=== PATIENT | male | born 1960 | race African-American/Black ===

== ENCOUNTER 2018-03-15 20:05 | Emergency (ER) | payer SELFPAY ==
[2018-03-15] MEDS: NICARDipine HCL 30 MG CAPSULE PO (20:50)
[2018-03-15 21:20] LABS: TROPONIN-I < 0.012 ng/ml (0.000-0.120)
== END 2018-03-15 21:59 | disposition home or self-care (01) ==
LOC: E/R 20:05
DX: R07.9 Chest pain, unspecified (principal); I10 Essential (primary) hypertension; M62.512 Muscle wasting and atrophy, not elsewhere classified, left shoulder; Z79.82 Long term (current) use of aspirin
CPT/HCPCS: 36415; 71045; 84484; 93005; 99285-25

== ENCOUNTER 2018-07-12 08:50 | Emergency (ER) | payer OTHER ==
[2018-07-12] MEDS: KETOROLAC 60 MG INJ IM (09:50)
== END 2018-07-12 09:55 | disposition home or self-care (01) ==
LOC: FTE 08:50
DX: M54.6 Pain in thoracic spine (principal); I10 Essential (primary) hypertension; Z79.82 Long term (current) use of aspirin
CPT/HCPCS: 96372; 99284-25

== ENCOUNTER 2018-07-20 14:30 | Emergency (ER) | payer OTHER ==
[2018-07-20] MEDS: KETOROLAC 30 MG INJ IM (16:00)
== END 2018-07-20 16:10 | disposition home or self-care (01) ==
LOC: E/R 14:30
DX: S39.012A Strain of muscle, fascia and tendon of lower back, initial encounter (principal); G56.21 Lesion of ulnar nerve, right upper limb; I10 Essential (primary) hypertension; X58.XXXA Exposure to other specified factors, initial encounter; Y92.89 Other specified places as the place of occurrence of the external cause
CPT/HCPCS: 96372; 99284-25